=== PATIENT | female | born 1970 | race Caucasian/White ===

== ENCOUNTER → 2018-02-26 15:00 | Outpatient (CLI) | payer OTHER, SELFPAY | PROVIDERS: Family Provider Nurse Practitioner Family; PCP Nurse Practitioner Family | DX: Z23 Encounter for immunization (principal) | CPT/HCPCS: 90471; 90682 ==

== ENCOUNTER → 2018-06-22 08:27 | Outpatient (CLI) | payer OTHER, SELFPAY ==
--- NOTE | 2018-06-22 | DI.ECHO.S_ITS ---
[facility] +---------+ : : [address] : [address] : : : : [phone] : : : : Phone: [phone]+ Echocardiogram Report + + :Name: BURAK ELIZALDE Study Date: 06/22/2018 Height: 65 in : :[facility] Exam Location: [facility] Weight: 170 lb : : Gender: Female BSA: 1.8 m2 : :: 1970 Age: 48 yrs BP: 115/90 mmHg: :Reason For Study: Atrial fibrillation : : Performed By: Kori Page : :Referring: PAIGE MARTINS : + + Interpretation Summary The left ventricle is normal in size. Left ventricular systolic function is normal without focal wall motion abnormalities. The ejection fraction is estimated to be 60-65%. Diastolic parameters suggest probable normal left ventricular diastolic function and normal filling pressures. The right ventricle is normal in size and function. The right ventricular systolic pressure is estimated to be at least 17 mmHg based on an estimated right atrial pressure of 3 mm Hg. The left atrium is moderately dilated. Right atrial size is normal. There is no significant valvular heart disease. The ascending aorta is moderately enlarged. There has been no significant change since the previous study. Procedure: A two-dimensional transthoracic echocardiogram with color flow and Doppler was performed. The study quality was technically adequate. Comparison is made with the echocardiogram of 06/19/2014. The patient was in normal sinus rhythm during the exam. Left Ventricle: The left ventricle is normal in size. Left ventricular wall thickness is borderline increased. Proximal septal thickening is noted. Left ventricular systolic function is normal without focal wall motion abnormalities. The ejection fraction is estimated to be 60-65%. Diastolic parameters suggest probable normal left ventricular diastolic function and normal filling pressures. Right Ventricle: The right ventricle is normal in size and function. Atria: The left atrium is moderately dilated. Right atrial size is normal. There is no Doppler evidence for an interatrial shunt. Mitral Valve: The mitral valve is normal in structure and function. There is trace mitral regurgitation. Aortic Valve: The aortic valve is grossly normal. The aortic valve opens well. There is trace aortic regurgitation. Tricuspid Valve: The tricuspid valve is normal in structure and function. There is mild tricuspid regurgitation. The right ventricular systolic pressure is estimated to be at least 17 mmHg based on an estimated right atrial pressure of 3 mm Hg. Pulmonic Valve: The pulmonic valve is not well visualized. There is no significant valvular heart disease. Great Vessels: The aortic root is normal size. The ascending aorta is moderately enlarged. There has been no significant change since the previous study. The pulmonary is not well visualized. The IVC is of normal diameter and collapses greater than 50% with a sniff. This suggests a low right atrial pressure of 3 mm Hg. Pericardium/ Pleura There is no pericardial effusion. There is no pleural effusion. MMode/2D Measurements & Calculations LVIDd: 3.7 cm Ao root diam: 3.2 cm IVSd: 0.94 cm asc Aorta Diam: 4.3 cm LVPWd: 0.94 cm LV davis. diameter/BSA (cm/m^2): 2.0 LA A2 area: 22.7 cm2 RA long axis: 4.5 cm LA A4 area: 23.5 cm2 RA area: 17.1 cm2 LA length (vol): 5.2 cm RA vol: 54.7 ml LA vol: 87.5 ml RA : 29.6 ml/m2 LA vol index: 47.4 ml/m2 IVC diam: 1.5 cm RVD1 (basal): 4.2 cm TAPSE: 2.8 cm Doppler Measurements & Calculations Ao V2 max: 144.3 cm/sec LVOT Max Abdulaziz: 107.3 cm/sec Ao V2 mean: 103.6 cm/sec LV V1 max P.6 mmHg Ao max P.3 mmHg LV V1 VTI: 22.6 cm Ao mean P.6 mmHg sev ratio: 0.86 Ao V2 VTI: 26.4 cm MV E max abdulaziz: 95.2 cm/sec TR max abdulaziz: 183.8 cm/sec MV A max abdulaziz: 66.1 cm/sec TR max P.5 mmHg MV E/A: 1.4 PA V2 max: 107.0 cm/sec Med Peak E' Abdulaziz: 10.2 cm/sec PA V2 mean: 79.3 cm/sec E/E' med: 9.3 PA mean P.6 mmHg Lat Peak E' Abdulaziz: 11.9 cm/sec PA Accel Time: 0.07 sec E/E' lat: 8.0 E/e' average: 8.7 MV dec time: 0.13 sec MV P1/2t: 43.6 msec MV P1/2t max abdulaziz: 93.9 cm/sec MVA(P1/2t): 5.0 cm2 Reading Physician:MYRA
== END ==
PROVIDERS: Family Provider Nurse Practitioner Family; PCP Nurse Practitioner Family; Visit Provider Internal Medicine Cardiovascular Disease
DX: I48.91 Unspecified atrial fibrillation (principal); I07.1 Rheumatic tricuspid insufficiency
CPT/HCPCS: 93306

== ENCOUNTER → 2018-06-22 08:53 | Outpatient (CLI) | payer OTHER, SELFPAY ==
--- NOTE | 2018-06-22 | DI.MG.S_ITS ---
BILATERAL DIGITAL SCREENING MAMMOGRAM 3D/2D WITH CAD: 06/22/2018 CLINICAL: Routine screening. Comparison is made to exams dated: 04/25/2017 mammogram, 05/28/2015 mammogram - [facility], and 06/24/2010 mammogram - [facility]. The tissue of both breasts is heterogeneously dense. This may lower the sensitivity of mammography. Current study was also evaluated with a Computer Aided Detection (CAD) system. There is 1.1 cm asymmetry in the right breast posterior depth superior region seen on the mediolateral oblique view only 10 cm from the nipple. No other significant masses, calcifications, or other findings are seen in either breast. IMPRESSION: INCOMPLETE: NEEDS ADDITIONAL IMAGING EVALUATION The 1.1 cm asymmetry in the right breast is indeterminate. Additional views with possible ultrasound are recommended. This exam was interpreted at Station ID: [id number]. NOTE: For mammograms, a report in lay terms will be sent to the patient. Approximately 15% of breast malignancies will not be visualized mammographically. In the management of a palpable breast mass, a negative mammogram must not discourage biopsy of a clinically suspicious lesion. Electronically Signed By: Dom truong/jazmin:06/22/2018 16:13:57 letter sent: Additional Imaging Needed ACR BI-RADS Category 0: Incomplete 3340F
== END ==
PROVIDERS: PCP Nurse Practitioner Family; Visit Provider Nurse Practitioner Family
DX: Z12.31 Encounter for screening mammogram for malignant neoplasm of breast (principal)
CPT/HCPCS: 77063; 77067

== ENCOUNTER → 2018-07-12 14:49 | Outpatient (CLI) | payer OTHER, SELFPAY ==
--- NOTE | 2018-07-12 | DI.MG.S_ITS ---
UNILATERAL RIGHT DIGITAL DIAGNOSTIC MAMMOGRAM 3D/2D WITH ADDITIONAL VIEWS: 07/12/2018 CLINICAL: Additional evaluation requested from prior study. Comparison is made to exams dated: 06/22/2018 mammogram, 04/25/2017 mammogram, and 05/28/2015 mammogram - [facility]. The tissue of right breast is heterogeneously dense. This may lower the sensitivity of mammography. The asymmetry in the right breast posterior depth superior region seen on the mediolateral oblique view only is no longer seen and most likely represents summation artifact. No other significant masses or calcifications are seen in the breast. IMPRESSION: There is no mammographic evidence of malignancy. A 1 year screening mammogram is recommended. This exam was interpreted at Station ID: [id number]. NOTE: For mammograms, a report in lay terms will be sent to the patient. Approximately 15% of breast malignancies will not be visualized mammographically. In the management of a palpable breast mass, a negative mammogram must not discourage biopsy of a clinically suspicious lesion. Electronically Signed By: Dom Holcomb M.D. at/:07/12/2018 16:26:37 letter sent: Normal Exam ACR BI-RADS Category 2: Benign Finding(s) 3342F
== END ==
PROVIDERS: PCP Nurse Practitioner Family; Visit Provider Nurse Practitioner Family
DX: R92.8 Other abnormal and inconclusive findings on diagnostic imaging of breast (principal)
CPT/HCPCS: 77065; G0279

== ENCOUNTER → 2018-09-05 07:45 | Outpatient (CLI) | payer OTHER, SELFPAY ==
[2018-09-05 08:39] LABS: Add Manual Diff / Slide Review NO; Basophils Absolute Auto 0 /uL (0-100); Basophils Percent Auto 0.1 % (0-2); Eosinophils Absolute Auto 100 /uL (0-450); Eosinophils Percent Auto 1.1 % (2-4); Hematocrit 41.5 % (36-46); Hemoglobin 14.2 g/dL (12.0-16.0); Lymphocytes Absolute Auto 1300 /uL (1100-4500); Lymphocytes Percent Auto 17.8 % (25-40); Mean Corpuscular HGB Conc 34.2 % (30-36); Mean Corpuscular Hemoglobin 29.3 PG (26-34); Mean Corpuscular Volume 85.7 fL (80-100); Monocytes Absolute Auto 600 /uL (0-900); Monocytes Percent Auto 8.1 % (3-14); Neutrophils Absolute Auto 5400 /uL (1500-7000); Neutrophils Percent Auto 72.9 % (50-75); Platelet Count 316 X10^3/uL (150-400); Red Blood Cell Count 4.85 X10^6/uL (4.0-5.2); Red Cell Distribution Width 12.1 % (11.6-14.8); White Blood Cell Count 7.4 X10^3/uL (4.5-11.0)
[2018-09-05 09:12] LABS: Alanine Aminotransferase 37 IU/L (9-52); Albumin Globulin Ratio 1.4 (1.0-2.8); Alkaline Phosphatase 69 U/L (38-126); Aspartate Aminotransferase 25 IU/L (14-36); BUN Creatinine Ratio 18.8 (6-22); Bilirubin Total 0.4 mg/dL (0.2-1.3); Blood Urea Nitrogen 15 mg/dL (7-17); Calcium 8.7 mg/dL (8.4-10.2); Carbon Dioxide 29 mmol/L (22-32); Chloride 101 mmol/L (98-107); Cholesterol 109 mg/dL (140-199); Estimated Glomerular Filt Rate > 60.0 mL/min (>60); Globulin 2.9 g/dL (1.7-4.1); Glucose 99 mg/dL (70-100); HDL Cholesterol 41 mg/dL (40-60); HEMOLYSIS < 15 (0-50); LDL Cholesterol Calculated 50 mg/dL (<100); Potassium 4.2 mmol/L (3.4-5.1); Sodium 139 mmol/L (137-145); Total Protein 6.9 g/dL (6.3-8.2); Triglycerides 90 mg/dL (35-150)
[2018-09-05 09:31] LABS: Free T4, Direct Thyroxine 1.38 ng/dL (0.78-2.19)
[2018-09-05 09:37] LABS: High Sensitivity CRP - Cardiac > 15.0 mg/L (1.0-3.0)
[2018-09-05 09:44] LABS: Thyroid Stimulating Hormone 0.71 uIU/mL (0.47-4.68)
== END ==
PROVIDERS: PCP Nurse Practitioner Family; Visit Provider Nurse Practitioner Family
DX: I10 Essential (primary) hypertension (principal); I48.0 Paroxysmal atrial fibrillation; I49.3 Ventricular premature depolarization; Z83.3 Family history of diabetes mellitus
CPT/HCPCS: 36415; 80053; 80061; 84439; 84443; 85025; 86140

== ENCOUNTER → 2019-03-27 15:05 | Outpatient (CLI) | payer OTHER, SELFPAY | PROVIDERS: PCP Nurse Practitioner Family | DX: Z23 Encounter for immunization (principal) | CPT/HCPCS: 90471; 90686 ==

== ENCOUNTER → 2019-08-02 07:57 | Outpatient (CLI) | payer OTHER, SELFPAY ==
[2019-08-02 08:29] LABS: Add Manual Diff / Slide Review NO; Basophils Absolute Auto 0 /uL (0-100); Basophils Percent Auto 0.5 % (0-2); Eosinophils Absolute Auto 100 /uL (0-450); Eosinophils Percent Auto 3.2 % (2-4); Hematocrit 42.6 % (36-46); Hemoglobin 14.5 g/dL (12.0-16.0); Lymphocytes Absolute Auto 1600 /uL (1100-4500); Lymphocytes Percent Auto 34.5 % (25-40); Mean Corpuscular Hemoglobin 29.1 PG (26-34); Mean Corpuscular Volume 85.7 fL (80-100); Monocytes Absolute Auto 300 /uL (0-900); Monocytes Percent Auto 7.5 % (3-14); Neutrophils Absolute Auto 2500 /uL (1500-7000); Neutrophils Percent Auto 54.3 % (50-75); Platelet Count 348 X10^3/uL (150-400); Red Blood Cell Count 4.97 X10^6/uL (4.0-5.2); White Blood Cell Count 4.5 X10^3/uL (4.5-11.0)
[2019-08-02 08:38] LABS: Hemoglobin A1C% w Est Avg Glu 5.2 % (4.0-6.0)
[2019-08-02 09:10] LABS: Luteinizing Hormone 5.67 mIU/mL
[2019-08-02 09:18] LABS: Thyroid Stimulating Hormone 0.68 uIU/mL (0.47-4.68)
[2019-08-02 13:07] LABS: Alanine Aminotransferase 18 IU/L (<35); Albumin 4.2 g/dL (3.5-5.0); Albumin Globulin Ratio 1.6 (1.0-2.8); Alkaline Phosphatase 42 U/L (38-126); Aspartate Aminotransferase 25 IU/L (14-36); BUN Creatinine Ratio 17.5 (6-22); Bilirubin Total 0.5 mg/dL (0.2-1.3); Blood Urea Nitrogen 14 mg/dL (7-17); Calcium 9.8 mg/dL (8.4-10.2); Carbon Dioxide 27 mmol/L (22-32); Chloride 102 mmol/L (98-107); Estimated Glomerular Filt Rate > 60.0 mL/min (>60); Globulin 2.7 g/dL (1.7-4.1); Glucose 112 mg/dL (70-100); HEMOLYSIS < 15 (0-50); Potassium 4.7 mmol/L (3.4-5.1); Sodium 138 mmol/L (137-145); Total Protein 6.9 g/dL (6.3-8.2)
[2019-08-02 13:23] LABS: Prolactin 23.1 ng/mL (3.0-18.6)
== END ==
PROVIDERS: PCP Nurse Practitioner Family; Referring Provider Nurse Practitioner Family; Visit Provider Nurse Practitioner Family
DX: O92.6 Galactorrhea (principal); I10 Essential (primary) hypertension; F90.8 Attention-deficit hyperactivity disorder, other type; F41.1 Generalized anxiety disorder; I48.0 Paroxysmal atrial fibrillation
CPT/HCPCS: 36415; 80053; 83001; 83002; 83036; 84146; 84443; 85025

== ENCOUNTER → 2020-04-16 12:46 | Outpatient (CLI) | payer OTHER, SELFPAY | PROVIDERS: PCP Nurse Practitioner Family; Referring Provider Internal Medicine; Visit Provider Internal Medicine | DX: Z23 Encounter for immunization (principal) | CPT/HCPCS: 90471; 90682 ==

== ENCOUNTER → 2020-06-19 09:46 | Outpatient (CLI) | payer OTHER, SELFPAY ==
[2020-06-19] MEDS: COVID-19 VACC(MODERNA-1)/PF 100 MCG/0.5 ML VIAL IM (09:53)
== END ==
PROVIDERS: PCP Nurse Practitioner Family; Visit Provider Internal Medicine
DX: Z23 Encounter for immunization (principal)
CPT/HCPCS: 0011A; 91301

== ENCOUNTER → 2020-07-08 09:22 | Outpatient (CLI) | payer OTHER, SELFPAY ==
[2020-07-08 10:53] LABS: COVID19 -Nasal RAPID Negative (Negative)
== END ==
PROVIDERS: PCP Nurse Practitioner Family; Visit Provider Nurse Practitioner Family
DX: Z01.812 Encounter for preprocedural laboratory examination (principal); Z20.822 Contact with and (suspected) exposure to COVID-19
CPT/HCPCS: 87635

== ENCOUNTER 2020-07-10 14:59 | Day surgery (SDC) | payer OTHER, SELFPAY ==
--- NOTE | 2020-07-10 12:26 | PM.OP.ENDO ---
Operative Date/Time/Diagnoses Date of procedure: 07/10/20 Procedure Notes SCOAP/Timeout: 4:28 p.m. Procedure in detail: ENDOSCOPIST: Rosalinda Fair MD PROCEDURE: Colonoscopy Procedure start time: 4:29 p.m. Procedure end time: 4:45 p.m. INDICATIONS: 1. Family history of colon cancer 2. Screening for colon cancer MEDICATION: None ASA CLASS: 2 CECAL WITHDRAWAL TIME: 15 minutes COMPLICATIONS: None. EXTENT OF PROCEDURE: Cecum. QUALITY OF PREP: Good with portions of liquid stool. PROCEDURE: Prior to insertion of the colonoscope, a digital rectal examination was accomplished with circumferential palpation of the distal rectal mucosa without significant findings being noted. The high-definition pediatric colonoscope was passed into the rectum in the usual fashion and advanced over to the cecum without difficulty. The ileocecal valve, appendiceal stoma, and medial wall all could be inspected and no abnormalities were seen. ASCENDING COLON: As the colonoscope was withdrawn, care was taken to expose and inspect the haustral folds and no abnormalities were seen. HEPATIC FLEXURE: Normal, no polyps, diverticula or other abnormalities. TRANSVERSE COLON: Normal, no polyps, diverticula or other abnormalities. DESCENDING COLON: Normal, no polyps, diverticula or other abnormalities. SIGMOID COLON: Normal, no polyps, diverticula or other abnormalities. RECTUM: Normal. J maneuver was produced. There was no significant perianal disease. The J maneuver was broken. The remainder of the rectum was inspected and there was no external hemorrhoid disease. The scope was withdrawn. IMPRESSION: 1. Normal colonoscopy PLAN: 1. Repeat colonoscopy in 5 years. The possibility of a missed lesion including a malignancy has been discussed with the patient previously. Potential alarm symptoms have been discussed and should be reported immediately.
[2020-07-10] MEDS: HYOSCYAMINE 0.125 MG TABLET PO (15:22)
[2020-07-10] MEDS: LACTATED RINGERS 1,000 ML 200 ML IV (15:31)
[2020-07-10 15:39] VITALS: BP 136/86; PULSE 92; RESP 16; TEMP 36.4; O2SAT 100; BMI 30.2
[2020-07-10 16:50] VITALS: BP 155/99; PULSE 89; RESP 14; TEMP 37.4; O2SAT 100
--- NOTE | 2020-07-10 16:50 | SUR.PHASEII ---
pt. straight to phase 2 recovery as she received no sedation.
[2020-07-10 17:06] VITALS: BP 133/84; PULSE 70; RESP 16; TEMP 37.2; O2SAT 100
== END 2020-07-10 17:07 | disposition home or self-care (01) ==
PROVIDERS: PCP Student in an Organized Health Care Education/Training Program; Referring Provider Student in an Organized Health Care Education/Training Program; Visit Provider Student in an Organized Health Care Education/Training Program
PROC: 0DJD8ZZ Inspection of Lower Intestinal Tract, Via Natural or Artificial Opening Endoscopic (ICD-10-PCS; CPT 45378; principal; 2020-07-10 16:00)
DX: Z12.11 Encounter for screening for malignant neoplasm of colon (principal); Z80.0 Family history of malignant neoplasm of digestive organs; I48.0 Paroxysmal atrial fibrillation; I10 Essential (primary) hypertension; E66.9 Obesity, unspecified; F32.9 Major depressive disorder, single episode, unspecified; Z86.16 Personal history of COVID-19
CPT/HCPCS: 45378

== ENCOUNTER → 2020-07-17 08:13 | Outpatient (CLI) | payer OTHER, SELFPAY ==
[2020-07-17] MEDS: COVID-19 VACC #2, MRNA(MOD) 100 MCG/0.5 ML VIAL IM (08:21)
== END ==
PROVIDERS: PCP Student in an Organized Health Care Education/Training Program; Visit Provider Internal Medicine
DX: Z23 Encounter for immunization (principal)
CPT/HCPCS: 0012A; 91301

== ENCOUNTER → 2021-04-14 17:13 | Outpatient (CLI) | payer OTHER, SELFPAY ==
--- NOTE | 2021-04-14 | DI.MG.S_ITS ---
BILATERAL DIGITAL SCREENING MAMMOGRAM 3D/2D WITH CAD: 04/14/2021 CLINICAL: Routine screening. Comparison is made to exams dated: 07/12/2018 mammogram, 06/22/2018 mammogram, 04/25/2017 mammogram, and 05/28/2015 mammogram - [facility]. The tissue of both breasts is heterogeneously dense. This may lower the sensitivity of mammography. Current study was also evaluated with a Computer Aided Detection (CAD) system. There is a possible asymmetry with an indistinct margin in the left breast anterior depth superior region seen on the mediolateral oblique view only. This represents a change. There also is a possible asymmetry with an indistinct margin in the left breast middle depth central to the nipple seen on the mediolateral oblique view only. This represents a change. No other significant masses, calcifications, or other findings are seen in either breast. IMPRESSION: INCOMPLETE: NEEDS ADDITIONAL IMAGING EVALUATION The possible asymmetry in the left breast anterior depth superior region seen on the mediolateral oblique view only is indeterminate. Additional views with possible ultrasound are recommended. The possible asymmetry in the left breast middle depth central to the nipple seen on the mediolateral oblique view only is indeterminate. Additional views with possible ultrasound are recommended. This exam was interpreted at Station ID: [id number]. NOTE: For mammograms, a report in lay terms will be sent to the patient. Approximately 15% of breast malignancies will not be visualized mammographically. In the management of a palpable breast mass, a negative mammogram must not discourage biopsy of a clinically suspicious lesion. Electronically Signed By: Jd Castro M.D. jr/:04/15/2021 08:34:39 letter sent: Additional Imaging Needed ACR BI-RADS Category 0: Incomplete 3340F
== END ==
PROVIDERS: PCP Physician Assistant; Referring Provider Physician Assistant; Visit Provider Physician Assistant
DX: Z12.31 Encounter for screening mammogram for malignant neoplasm of breast (principal)
CPT/HCPCS: 77063; 77067

== ENCOUNTER → 2021-04-16 10:06 | Outpatient (CLI) | payer OTHER, SELFPAY ==
[2021-04-16] MEDS: COVID-19 VACC #3, MRNA(MOD) 50 MCG/0.25 ML VIAL IM (10:18)
== END ==
PROVIDERS: PCP Physician Assistant; Visit Provider Internal Medicine
DX: Z23 Encounter for immunization (principal)
CPT/HCPCS: 0013A; 91301

== ENCOUNTER → 2021-05-05 06:51 | Outpatient (CLI) | payer OTHER, SELFPAY | PROVIDERS: PCP Physician Assistant; Referring Provider Internal Medicine; Visit Provider Internal Medicine | DX: Z23 Encounter for immunization (principal) | CPT/HCPCS: 90471; 90682 ==

== ENCOUNTER → 2022-02-14 12:21 | Outpatient (CLI) | payer OTHER, SELFPAY ==
[2022-02-14 13:09] LABS: Add Manual Diff / Slide Review NO; Basophils Absolute Auto 0 /uL (0-100); Basophils Percent Auto 0.7 % (0-2); Eosinophils Absolute Auto 100 /uL (0-450); Eosinophils Percent Auto 1.7 % (2-4); Hematocrit 38.9 % (36-46); Hemoglobin 13.3 g/dL (12.0-16.0); Lymphocytes Absolute Auto 1700 /uL (1100-4500); Lymphocytes Percent Auto 33.5 % (25-40); Mean Corpuscular HGB Conc 34.3 % (30-36); Mean Corpuscular Hemoglobin 29.1 PG (26-34); Mean Corpuscular Volume 84.9 fL (80-100); Monocytes Absolute Auto 400 /uL (0-900); Monocytes Percent Auto 7.6 % (3-14); Neutrophils Absolute Auto 2900 /uL (1500-7000); Neutrophils Percent Auto 56.5 % (50-75); Platelet Count 284 X10^3/uL (150-400); Red Blood Cell Count 4.58 X10^6/uL (4.0-5.2); Red Cell Distribution Width 13.2 % (11.6-14.8); White Blood Cell Count 5.2 X10^3/uL (4.5-11.0)
[2022-02-14 14:28] LABS: Alanine Aminotransferase 21 IU/L (<35); Albumin 4.2 g/dL (3.5-5.0); Albumin Globulin Ratio 1.4 (1.0-2.8); Alkaline Phosphatase 71 U/L (38-126); Aspartate Aminotransferase 30 IU/L (14-36); BUN Creatinine Ratio 16.7 (6-22); Bilirubin Total 0.6 mg/dL (0.2-1.3); Blood Urea Nitrogen 15 mg/dL (7-17); Calcium 9.7 mg/dL (8.4-10.2); Carbon Dioxide 30 mmol/L (22-32); Chloride 102 mmol/L (98-107); Cholesterol 160 mg/dL (140-199); Estimated Glomerular Filt Rate > 60 mL/min (>60); Globulin 2.9 g/dL (1.7-4.1); Glucose 97 mg/dL (70-100); HDL Cholesterol 83 mg/dL (40-60); HEMOLYSIS < 15 (0-50); LDL Cholesterol Calculated 66 mg/dL (<100); Potassium 4.1 mmol/L (3.4-5.1); Sodium 140 mmol/L (137-145); Total Protein 7.1 g/dL (6.3-8.2); Triglycerides 57 mg/dL (35-150)
[2022-02-14 15:01] LABS: Thyroid Stimulating Hormone 0.461 uIU/mL (0.47-4.68)
[2022-02-14 15:08] LABS: Vitamin B12 401 pg/mL (239-931)
[2022-02-14 15:59] LABS: Creatinine Urine Random 109.7 mg/dL
[2022-02-14 16:05] LABS: Microalbumin Urine Random < 0.6 mg/dL (0-1.6)
[2022-02-14 16:54] LABS: Vitamin D 25 Hydroxy (D3) 18.2 ng/mL (30.0-100.0)
== END ==
PROVIDERS: PCP Family Medicine; Referring Provider Family Medicine; Visit Provider Family Medicine
DX: I10 Essential (primary) hypertension (principal); I48.0 Paroxysmal atrial fibrillation; R20.0 Anesthesia of skin; R20.2 Paresthesia of skin
CPT/HCPCS: 36415; 80053; 80061; 82043; 82306; 82570; 82607; 84443; 85025

== ENCOUNTER → 2022-02-17 13:09 | Outpatient (CLI) | payer OTHER, SELFPAY ==
--- NOTE | 2022-02-17 | DI.RAD.S_ITS ---
PROCEDURE: XR THORACIC SPINE 2V INDICATIONS: BACK PAIN TECHNIQUE: 2 views of the thoracic spine were acquired. COMPARISON: None. FINDINGS: Bones: No fractures or dislocations. No suspicious bony lesions. There is some moderate diffuse degenerative disc disease noted throughout the patient's thoracic spine. Soft tissues: No paravertebral stripe thickening. IMPRESSION: 1. No evidence for acute osseous abnormality involving the thoracic spine. 2. Moderate diffuse degenerative disc disease noted at all levels. 3. If further evaluation for radicular symptoms is of clinical concern MRI of the thoracic spine may be further clinical value. Dictated by: Riaz Desai M.D. on 02/17/2022 at 13:49 Approved by: Riaz Desai M.D. on 02/17/2022 at 13:52
--- NOTE | 2022-02-17 13:11 | DI.RAD.S_ITS ---
PROCEDURE: XR LUMBAR SPINE 2-3V INDICATIONS: BACK PAIN TECHNIQUE: 3 views of the lumbar spine were acquired. COMPARISON: None. FINDINGS: Bones: 5 [id number] vertebrae are present. There is normal bony alignment. No vertebral body compression fractures. No suspicious bony lesions. There is moderate degenerative disc disease noted L1-L2 and L4-L5. At L4-L5 there is approximately 7 to 8 millimeters anterolisthesis of L4 on L5 which appears to be secondary to bilateral facet degenerative change. Soft tissues: Overlying bowel gas pattern is normal. No suspicious soft tissue calcifications. IMPRESSION: 1. No evidence for acute osseous abnormality involving the lumbar spine. 2. Moderate degenerative disc disease present L1-L2 and L4-L5. 3. 7 to 8 millimeters anterolisthesis L4 on L5 which appears to be secondary to bilateral facet degenerative change. Dictated by: Riaz Desai M.D. on 02/17/2022 at 13:52 Approved by: Riaz Desai M.D. on 02/17/2022 at 13:56
--- NOTE | 2022-02-17 13:11 | DI.RAD.S_ITS ---
PROCEDURE: XR CERVICAL SPINE 2V OR 3V INDICATIONS: BACK PAIN TECHNIQUE: 3 view(s) of the cervical spine were acquired. COMPARISON: None. FINDINGS: Bones: No fractures or dislocations to the C7 level. The lateral masses of C1 appear intact on the odontoid view. No suspicious bony lesions. Soft tissues: No prevertebral soft tissue swelling. IMPRESSION: Negative cervical spine series. Dictated by: Riaz Desai M.D. on 02/17/2022 at 13:47 Approved by: Riaz Desai M.D. on 02/17/2022 at 13:49
== END ==
PROVIDERS: PCP Family Medicine; Referring Provider Family Medicine; Visit Provider Family Medicine
DX: M54.9 Dorsalgia, unspecified (principal); M54.2 Cervicalgia; M51.36 Other intervertebral disc degeneration, lumbar region; M43.16 Spondylolisthesis, lumbar region
CPT/HCPCS: 72040; 72070; 72100

== ENCOUNTER → 2022-06-14 07:54 | Outpatient (CLI) | payer OTHER, SELFPAY ==
[2022-06-14 09:42] LABS: Vitamin D 25 Hydroxy (D3) 31.4 ng/mL (30.0-100.0)
[2022-06-14 09:44] LABS: Free T4, Direct Thyroxine 1.14 ng/dL (0.78-2.19); T4 Total Thyroxine 6.81 ug/dL (5.5-11.0); T7 (Free Thyroxine Index) 2.53 (1.65-3.89); Triiodothryronine T3 Uptake 37.1 % (23.5-40.5)
[2022-06-15 08:11] LABS: Triiodothyronine T3 Total 108 ng/dL (71-180)
== END ==
PROVIDERS: PCP Family Medicine; Referring Provider Family Medicine; Visit Provider Family Medicine
DX: R79.89 Other specified abnormal findings of blood chemistry (principal); E55.9 Vitamin D deficiency, unspecified
CPT/HCPCS: 36415; 82306; 84436; 84439; 84443; 84479; 84480

== ENCOUNTER → 2022-10-25 08:45 | Outpatient (CLI) | payer OTHER, SELFPAY ==
[2022-10-25 10:20] LABS: Alanine Aminotransferase 26 IU/L (<35); Albumin 4.2 g/dL (3.5-5.0); Albumin Globulin Ratio 1.6 (1.0-2.8); Alkaline Phosphatase 76 U/L (38-126); Aspartate Aminotransferase 28 IU/L (14-36); BUN Creatinine Ratio 17.4 (6-22); Bilirubin Total 0.7 mg/dL (0.2-1.3); Blood Urea Nitrogen 15 mg/dL (7-17); Calcium 9.6 mg/dL (8.4-10.2); Carbon Dioxide 32 mmol/L (22-32); Chloride 101 mmol/L (98-107); Cholesterol 177 mg/dL (140-199); Estimated Glomerular Filt Rate > 60 mL/min (>60); Globulin 2.6 g/dL (1.7-4.1); Glucose 103 mg/dL (70-100); HDL Cholesterol 93 mg/dL (40-60); HEMOLYSIS < 15 (0-50); LDL Cholesterol Calculated 71 mg/dL (<100); Potassium 3.9 mmol/L (3.4-5.1); Sodium 139 mmol/L (137-145); Total Protein 6.8 g/dL (6.3-8.2); Triglycerides 65 mg/dL (35-150)
[2022-10-25 10:32] LABS: Follicle Stimulating Hormone 62.7 mIU/mL; Luteinizing Hormone 26.9 mIU/mL; Progesterone, Total 0.77 ng/mL
[2022-10-25 10:32] LABS: Free T3, Triiodothyronine Free 4.46 pg/mL (2.77-5.27); Free T4, Direct Thyroxine 1.13 ng/dL (0.78-2.19)
[2022-10-25 10:33] LABS: Prolactin 18.9 ng/mL (3.0-18.6)
[2022-10-25 10:35] LABS: Vitamin D 25 Hydroxy (D3) 36.6 ng/mL (30.0-100.0)
[2022-10-25 10:37] LABS: Creatinine Urine Random 115.6 mg/dL
[2022-10-25 10:42] LABS: Microalbumin Urine Random < 0.6 mg/dL (0-1.6)
[2022-10-25 10:45] LABS: Thyroid Stimulating Hormone 0.781 uIU/mL (0.47-4.68)
[2022-10-25 10:47] LABS: Estradiol, Total 20.5 pg/mL
[2022-10-26 09:18] LABS: Triiodothyronine T3 Total 104 ng/dL (71-180)
[2022-11-01 08:55] LABS: Testosterone % Fr + Wkly bound 11.1 % (3.0-18.0); Testosterone Fr+Wkly bound 2.1 ng/dL (0.0-9.5); Testosterone, Total 18.6 ng/dL (.)
[2022-11-15 13:31] LABS: Triiodothyronine T3 Reverse 10.3
== END ==
PROVIDERS: PCP Family Medicine; Referring Provider Family Medicine; Visit Provider Family Medicine
DX: R79.89 Other specified abnormal findings of blood chemistry (principal); E55.9 Vitamin D deficiency, unspecified; I10 Essential (primary) hypertension; N64.3 Galactorrhea not associated with childbirth; R23.2 Flushing; N95.9 Unspecified menopausal and perimenopausal disorder
CPT/HCPCS: 36415; 80053; 80061; 82043; 82306; 82570; 82627; 82670; 83001; 83002; 84144; 84146; 84403; 84439; 84443; 84480; 84481; 84482